=== PATIENT | male | born 1940 ===

== ENCOUNTER 2021-12-10 08:15 | Inpatient (IN) | payer OTHER ==
[~2021-12-10] VITALS: Ht 170.2 cm; Wt 95.3 kg
[2021-12-10] MEDS ORDERED: ZETIA10 MG PO (09:55)
[2021-12-10] MEDS ORDERED: SPIRIVA RESPIMAT4 G1 IH (09:56)
[2021-12-10] MEDS ORDERED: AVALIDE 300-121 EACH PO (09:56)
[2021-12-14] MEDS ORDERED: ULTRAM50 MG PO (09:21)
[2021-12-14] MEDS ORDERED: MIRALAX17 GM PO (09:22)
[2021-12-14] MEDS ORDERED: TYLENOL ARTHRI650 MG PO (09:22)
[2021-12-14] MEDS ORDERED: PEPCID AC20 MG PO (09:23)
[2021-12-14] MEDS ORDERED: KETO10TA2 PO (09:23)
== END 2021-12-14 10:49 | disposition home or self-care (01) | DRG 351 ==
LOC: ADM 08:15 → EDSTATUS 12-12 08:15 → CIR.AMB 12-12 08:15 → SURH 12-12 09:46 → CIR.AMB 12-12 10:00 → SURH 12-14 10:49
PROVIDERS: ADMIT Surgery; ATTEND Surgery
PROC: 0WUF4JZ Supplement Abdominal Wall with Synthetic Substitute, Percutaneous Endoscopic Approach (ICD-10-PCS; 2021-12-12)
PROC: 0YU64JZ Supplement Left Inguinal Region with Synthetic Substitute, Percutaneous Endoscopic Approach (ICD-10-PCS; principal; 2021-12-12 10:00)
DX: K40.90 Unilateral inguinal hernia, without obstruction or gangrene, not specified as recurrent (principal); K42.0 Umbilical hernia with obstruction, without gangrene; K43.9 Ventral hernia without obstruction or gangrene; I10 Essential (primary) hypertension; Z20.822 Contact with and (suspected) exposure to COVID-19

== ENCOUNTER 2021-12-18 19:28 | Emergency (ER) | payer OTHER ==
[~2021-12-18] VITALS: Ht 170.2 cm; Wt 95.3 kg
[~2021-12-18 19:28] MED LIST: AVALIDE 300-121 EACH PO; KETO10TA2 PO; MIRALAX17 GM PO; PEPCID AC20 MG PO; SPIRIVA RESPIMAT4 G1 IH; TYLENOL ARTHRI650 MG PO; ULTRAM50 MG PO; ZETIA10 MG PO
[2021-12-18] MEDS ORDERED: LASIX20 MG PO (22:37)
== END 2021-12-18 22:38 | disposition home or self-care (01) ==
LOC: ER 19:28
DX: R60.0 Localized edema (principal)